=== PATIENT | male | born 1970 | race American Indian/Alaskan Native ===

== ENCOUNTER 2017-05-19 00:41 | Emergency (ER) | payer SELFPAY ==
[2017-05-19 02:48] LABS: Hematocrit 44.4 % (35.5-45.6); Hemoglobin 13.9 gm/dl (11.8-15.2); Mean Corpuscular HGB Conc 31 % (32-34); Mean Corpuscular Hemoglobin 26 pg (28-32); Mean Corpuscular Volume 84 fl (84-94); Platelet Count 234 K/mm3 (140-440); Red Cell Distribution Width 14.2 % (13.2-15.2)
[2017-05-19 03:03] LABS: BUN/Creatinine Ratio 18; Blood Urea Nitrogen 14 mg/dL (9-20); Calcium 8.6 mg/dL (8.4-10.2); Hemolysis Index 209
--- NOTE | 2017-05-19 03:13 | XRay Report ---
FINAL REPORT EXAM: XR CHEST ROUTINE 2V HISTORY: SOB TECHNIQUE: Three views of the chest were submitted. FINDINGS: The heart size and mediastinum appear normal. The lungs are clear. Pleural fluid is not seen. The bones and soft tissues well maintained. IMPRESSION: No active chest disease.
[2017-05-19 03:36] LABS: Band Neutrophils # (Manual) 0.1 K/mm3; Total Cells Counted 100
[2017-05-19 03:37] LABS: Platelet Estimate Consistent w Auto
[2017-05-19] MEDS ORDERED: LIDOCAINE VISCOUS 2% PO ONE (19:24)
[2017-05-19] MEDS ORDERED: MORPHINE IV ONE (19:25)
[2017-05-19] MEDS ORDERED: ZOFRAN IV ONE (19:25)
[2017-05-19] MEDS ORDERED: ATIVAN IV ONE (19:25)
[2017-05-19] MEDS ORDERED: NACL 0.9% 1000 ML 1,000 ML IV ONE (19:25)
--- NOTE | 2017-05-19 19:28 | Emergency Department Report ---
HPI - General Chief Complaint: Chest Pain Time Seen by Provider: 05/19/17 17:14 - HPI HPI: The patient is a 47-year-old male who presents for evaluation of generalized myalgias and abdominal pain. The patient reports epigastric abdominal pain for the past 2 days, crampy in quality, 10/10 in severity, exacerbated with lying flat, and radiating into the mid chest. He also complains of nausea, cough, and sore throat also for the past 2 days. He shares a is a space similar symptoms in the past. The patient denies fever, trauma to the chest or abdomen , dyspnea, syncope, hemoptysis, diarrhea, blood in the stool, dark tarry stool, dysuria, hematuria, flank pain, genital discharge, inability to pass flatus. ED Past Medical Hx - Past Medical History Previous Medical History?: No - Surgical History Past Surgical History?: No - Social History Smoking Status: Current Every Day Smoker Substance Use Type: Alcohol, Marijuana - Medications Home Medications: Home Medications Medication Instructions Recorded Confirmed Last Taken Type Benzonatate [Tessalon Perles] 100 mg PO Q8HR #14 capsule 05/19/17 Unknown Rx Omeprazole Magnesium [PriLOSEC Otc] 20 mg PO QDAY #14 tablet. 05/19/17 Unknown Rx Ondansetron [Zofran TAB] 4 mg PO Q8HR PRN #15 tablet 05/19/17 Unknown Rx traMADol [Ultram 50 MG tab] 50 mg PO Q6HR PRN #15 tablet 05/19/17 Unknown Rx ED Review of Systems ROS: Stated complaint: CHEST PAIN,THROAT PAIN Other details as noted in HPI Constitutional: denies: fever ENT: denies: throat or neck pain Respiratory: reports cough denies: shortness of breath Cardiovascular: denies: chest pain Endocrine: denies unexplained weight loss or gain Gastrointestinal: reports abdominal pain, nausea Genitourinary: denies: dysuria Musculoskeletal: denies: leg swelling Skin: denies: rash Neurological: denies: headache Hematological/Lymphatic: denies: easy bleeding or easy bruising Psych: denies sadness or hopelessness Physical Exam - Physical Exam Vital Signs: Vital Signs 05/19/17 05/19/17 05/19/17 00:55 01:41 19:04 Temperature 98.3 F 98.3 F 98.5 F Pulse Rate 93 H 79 86 Respiratory 18 18 12 Rate Blood Pressure 124/75 124/75 Blood Pressure 115/85 [Right] O2 Sat by Pulse 100 99 100 Oximetry 05/19/17 19:16 Temperature Pulse Rate Respiratory 16 Rate Blood Pressure Blood Pressure [Right] O2 Sat by Pulse 99 Oximetry Physical Exam: General: well-nourished, well-developed, no acute distress Head: Normocephalic, atraumatic Eyes: normal sclera ENT: Mucous membranes are pale and dry, no tonsillar swelling, redness, or exudates, no uvular or soft palate deviation Neck: No neck stiffness, no cervical adenopathy Respiratory: Breath sounds equal bilaterally, no wheezing, rales, or rhonchi Cardio: S1 and S2 present, no murmurs, rubs, gallops, capillary refill is delayed Abdomen: Normoactive bowel sounds, soft abdomen, epigastric and left lower quadrant tenderness to palpation present, no rigidity, no guarding or rebound tenderness Chest WALL/Back: No tenderness to palpation of the chest wall, no CVA tenderness with percussion Musc: No pitting edema Skin: No rash Neuro: no facial drooping, normal speech Psych: Normal affect ED Course Vital Signs 05/19/17 05/19/17 05/19/17 00:55 01:41 19:04 Temperature 98.3 F 98.3 F 98.5 F Pulse Rate 93 H 79 86 Respiratory 18 18 12 Rate Blood Pressure 124/75 124/75 Blood Pressure 115/85 [Right] O2 Sat by Pulse 100 99 100 Oximetry 05/19/17 19:16 Temperature Pulse Rate Respiratory 16 Rate Blood Pressure Blood Pressure [Right] O2 Sat by Pulse 99 Oximetry ED Medical Decision Making - Lab Data Result diagrams: 05/19/17 02:30 05/19/17 18:54 - Medical Decision Making The patient was seen and examined by myself. The patient is placed on a air sampling and monitoring and continuous pulse ox. On initial evaluation, the patient was found to be in no distress. Evaluation orders are placed. IV access is established and the patient is given 1 L normal saline fluid bolus and Zofran for nausea, and IV analgesic for pain. the patient was also given cough medicine and viscous lidocaine for sore throat. X-ray of the chest is negative. Lab results were non-concerning including WBC, hemoglobin, hematocrit , electrolytes, renal function, lipase The patient was reevaluated and reported that their symptoms were markedly improved. The patient is stable for discharge with outpatient follow-up. The patient is given follow-up and return instructions. The patient expressed understanding and agreed with the plan. The patient is discharged in stable condition. Critical care attestation.: If time is entered above; I have spent that time in minutes in the direct care of this critically ill patient, excluding procedure time. ED Disposition Clinical Impression: Abdominal pain, acute, epigastric, Abdominal pain, acute, left lower quadrant, Acute upper respiratory infection, Nausea, Dehydration Diarrhea Qualifiers: Diarrhea type: unspecified type Qualified Code(s): R19.7 - Diarrhea, unspecified Disposition: DC- TO HOME OR SELFCARE Is pt being admited?: No Does the pt Need Aspirin: No Condition: Stable Instructions: Abdominal Pain (ED), Musculoskeletal Pain (ED), Viral Syndrome ( ED), Upper Respiratory Infection (ED) Referrals: REJI HDZ MD [Primary Care Provider] - 3-5 Days Time of Disposition: 19:27
[2017-05-19 19:30] LABS: Lipase 31 units/L (13-60)
[2017-05-19 19:32] LABS: BUN/Creatinine Ratio 16; Blood Urea Nitrogen 14 mg/dL (9-20); Calcium 8.5 mg/dL (8.4-10.2); Hemolysis Index 11
[2017-05-19 23:04] VITALS: BP 129/96
== END 2017-05-19 23:35 | disposition home or self-care (01) ==
LOC: ED 00:41
DX: E86.0 Dehydration (principal); J06.9 Acute upper respiratory infection, unspecified; F17.200 Nicotine dependence, unspecified, uncomplicated
CPT/HCPCS: 36415; 71046; 80048; 82150; 83690; 84484; 85007; 85025; 87116; 87400; 87430; 93005; 93010; 96361; 96374; 96375; 99284; J2060; J2270; J2405; J7030